=== PATIENT | male | born 1990 | race American Indian/Alaskan Native ===

== ENCOUNTER 2017-06-19 11:09 | Emergency (ER) | payer BC ==
[2017-06-19 11:54] VITALS: BP 108/67
--- NOTE | 2017-06-19 12:48 | Emergency Department Report ---
Vomiting/Diarrhea - HPI Chief Complaint: Nausea/Vomiting/Diarrhea Stated Complaint: VOMITING Duration: 2 Days Nausea/Vomiting Severity: Mild Diarrhea Severity: None Symptoms: Yes Able to Tolerate Fluids, No Watery Diarrhea, No Bloody diarrhea, No Fever, No Recent Unusual Foods, No Recent Untreated Water, No Recent use of Antibiotics, No Family w/ Similar Symptoms, No Contacts w/ Similar Symptoms, No Rash, No Hematuria, No Recent URI Symptoms Other History: 26-year-old male past medical history none presents with complaint of 2 days of intermittent nausea vomiting and diarrhea which occurred more than 48 hours ago. Patient states he may have eaten undercooked food and states he may have experienced food poisoning. Patient has no clinical symptoms at this time. States his last episode of watery diarrhea was yesterday. Patient states his nausea has subsided. Denies fevers or chills. Denies dysuria. Denies abdominal or chest pain. Denies any recent antibiotic use or recent travel. Awake alert and oriented 3 and ambulatory. Denies any testicular pain or swelling. ED Review of Systems ROS: Stated complaint: VOMITING Other details as noted in HPI Constitutional: denies: chills, fever Eyes: denies: eye pain, eye discharge, vision change ENT: denies: ear pain, throat pain Respiratory: denies: cough, shortness of breath, wheezing Cardiovascular: denies: chest pain, palpitations Endocrine: no symptoms reported Gastrointestinal: nausea, vomiting. denies: abdominal pain, diarrhea Genitourinary: denies: urgency, dysuria Musculoskeletal: denies: back pain, joint swelling, arthralgia Skin: denies: rash, lesions Neurological: denies: headache, weakness, paresthesias Psychiatric: denies: anxiety, depression Hematological/Lymphatic: denies: easy bleeding, easy bruising ED Past Medical Hx - Past Medical History Previous Medical History?: No - Surgical History Past Surgical History?: No - Social History Smoking Status: Former Smoker - Medications Home Medications: Home Medications Medication Instructions Recorded Confirmed Last Taken Type Acetaminophen/Codeine [Tylenol #3] 1 tab PO Q4HR PRN #14 tablet 03/19/13 Unknown Rx traMADol [Ultram 50 MG tab] 50 mg PO Q6HR PRN #16 tablet 09/29/13 Unknown Rx Ondansetron [Zofran Odt] 4 mg PO Q6H PRN #10 tab.rapdis 06/19/17 Unknown Rx Vomiting Diarrhea Exam - Exam General: Vital signs noted. No distress. Alert and acting appropriately. HEENT: Yes Moist Mucous Membranes, No Pharyngeal Erythema, No Pharyngeal Exudates, No Rhinorrhea, No Conjuctival Injection, No Frontal Tenderness, No Maxillary Tenderness Neck: No Adenopathy, No Rigidity Lungs: Yes Clear Lung Sounds, Yes Good Air Exchange, No Wheezes, No Stridor, No Cough, No Nasal Flaring, No Retractions, No Use of Accessory Muscles Heart exam: Regular: Yes, Murmur: No, Tachycardia: No Abdomen: Tenderness: No (abdomen soft nontender nondistended on 4 quadrants on exam. Negative tenderness at McBurney's point negative iliopsoas negative Rovsing sign no peritoneal signs or guarding on clinical exam bowel sounds positive all 4 quadrants.), Peritoneal Signs: No, Distention: No, Hyperactive Bowel sounds: No Skin exam: Rash: No, Edema: No, Normal turgor: Yes Neurologic: Alert and oriented, no deficits. Musculoskeletal: Unremarkable. ED Course Vital Signs 06/19/17 11:49 Temperature 98.5 F Pulse Rate 72 Respiratory 16 Rate Blood Pressure 108/67 O2 Sat by Pulse 95 Oximetry ED Medical Decision Making - Medical Decision Making A/P: Gastroenteritis 1-clinical symptoms have completely resolved as per patient. Patient has no current nausea has not vomited since yesterday is tolerating by mouth fluid and food without difficulty and states the diarrhea has subsided. 2-Zofran when necessary, Pepcid when necessary, Pepto-Bismol when necessary 3-follow up with primary care 4- I advised patient that if he cannot tolerate fluid or food by mouth he experiences fevers or chills and persistent nausea and vomiting to return to the ED for reevaluation. Patient has no clinical signs concerning for appendicitis on clinical exam or history at this time. Critical care attestation.: If time is entered above; I have spent that time in minutes in the direct care of this critically ill patient, excluding procedure time. ED Disposition Clinical Impression: Gastroenteritis Nausea & vomiting Qualifiers: Vomiting type: unspecified Vomiting Intractability: non-intractable Qualified Code(s): R11.2 - Nausea with vomiting, unspecified Disposition: DC-01 TO HOME OR SELFCARE Is pt being admited?: No Does the pt Need Aspirin: No Condition: Stable Instructions: Gastroenteritis (ED), Food Poisoning (ED) Prescriptions: Ondansetron [Zofran Odt] 4 mg PO Q6H PRN #10 tab.rapdis PRN Reason: Nausea Referrals: NAKUL ORTIZ MD [Primary Care Provider] - 3-5 Days Forms: Work/School Release Form(ED) Time of Disposition: 12:47
== END 2017-06-19 13:18 | disposition home or self-care (01) ==
LOC: ED 11:09
DX: K52.9 Noninfective gastroenteritis and colitis, unspecified (principal)
CPT/HCPCS: 99282

== ENCOUNTER 2017-07-28 13:31 | Emergency (ER) | payer BC ==
[2017-07-28 13:36] VITALS: BP 126/78
[2017-07-28 14:30] LABS: Bilirubin,Urine NEG (Negative); Blood,Urine NEG (Negative); Color,Urine Yellow (Yellow); Mucus,Urine FEW /HPF; Nitrite,Urine NEG (Negative); Protein,Urine <15 mg/dL mg/dL (Negative); WBC,Urine < 1.0 /HPF (0.0-6.0)
--- NOTE | 2017-07-28 15:44 | Emergency Department Report ---
ED General Adult HPI - General Chief complaint: Urogenital-Male Stated complaint: STD CHECK Time Seen by Provider: 07/28/17 15:33 Source: patient, RN notes reviewed Mode of arrival: Ambulatory Limitations: No Limitations - History of Present Illness Initial comments: This is a 27-year-old male who is previously unknown to this provider who has no chronic medical conditions. The patient presents to the ER requesting an STD check. He has no complaints. He specifically denies headache, neck pain, chest pain, abdominal pain, shortness of breath, urinary symptoms, testicular symptoms, testicular pain, rectal pain, sore throat. Associated Symptoms: denies other symptoms. denies: confusion, chest pain, cough, diaphoresis, fever/chills, headaches, loss of appetite, malaise, nausea/ vomiting, seizure, shortness of breath, syncope, weakness - Related Data Previous Rx's Medication Instructions Recorded Last Taken Type Acetaminophen/Codeine [Tylenol #3] 1 tab PO Q4HR PRN #14 tablet 03/19/13 Unknown Rx traMADol [Ultram 50 MG tab] 50 mg PO Q6HR PRN #16 tablet 09/29/13 Unknown Rx Ondansetron [Zofran Odt] 4 mg PO Q6H PRN #10 tab.rapdis 06/19/17 Unknown Rx Allergies Allergy/AdvReac Type Severity Reaction Status Date / Time No Known Allergies Allergy Verified 07/28/17 13:34 ED Review of Systems ROS: Stated complaint: STD CHECK Other details as noted in HPI ED Past Medical Hx - Past Medical History Previous Medical History?: No - Surgical History Past Surgical History?: No - Social History Smoking Status: Never Smoker Substance Use Type: None - Medications Home Medications: Home Medications Medication Instructions Recorded Confirmed Last Taken Type Acetaminophen/Codeine [Tylenol #3] 1 tab PO Q4HR PRN #14 tablet 03/19/13 Unknown Rx traMADol [Ultram 50 MG tab] 50 mg PO Q6HR PRN #16 tablet 09/29/13 Unknown Rx Ondansetron [Zofran Odt] 4 mg PO Q6H PRN #10 tab.rapdis 06/19/17 Unknown Rx ED Physical Exam - General Limitations: No Limitations General appearance: alert, in no apparent distress - Head Head exam: Present: atraumatic, normocephalic - Eye Eye exam: Present: normal appearance, PERRL, EOMI. Absent: nystagmus - ENT ENT exam: Present: normal exam, normal orophraynx, mucous membranes moist, normal external ear exam - Neck Neck exam: Present: normal inspection, full ROM - Respiratory Respiratory exam: Present: normal lung sounds bilaterally. Absent: respiratory distress, wheezes, rales, rhonchi, stridor, chest wall tenderness, accessory muscle use, decreased breath sounds, prolonged expiratory - Cardiovascular Cardiovascular Exam: Present: regular rate, normal rhythm, normal heart sounds. Absent: bradycardia, tachycardia, irregular rhythm, systolic murmur, diastolic murmur, rubs, gallop - GI/Abdominal GI/Abdominal exam: Present: soft, normal bowel sounds. Absent: distended, tenderness, guarding, rebound, rigid, pulsatile mass - Rectal Rectal exam: Present: deferred - Extremities Exam Extremities exam: Present: normal inspection, full ROM, normal capillary refill. Absent: tenderness, pedal edema, joint swelling, calf tenderness - Back Exam Back exam: Present: normal inspection, full ROM. Absent: tenderness, CVA tenderness (R), paraspinal tenderness, vertebral tenderness - Neurological Exam Neurological exam: Present: alert, oriented X3, CN II-XII intact, normal gait, other (Extraocular movements intact. Tongue midline. No facial droop. Facial sensation intact to light touch in the V1, V2, V3 distribution bilaterally. 5 and 5 strength in 4 extremities.. Sensation is intact to light touch in 4 extremities.). Absent: motor sensory deficit - Psychiatric Psychiatric exam: Present: normal affect, normal mood - Skin Skin exam: Present: warm, dry, intact, normal color. Absent: rash ED Course Vital Signs 07/28/17 13:34 Temperature 97.9 F Pulse Rate 60 Respiratory 18 Rate Blood Pressure 126/78 O2 Sat by Pulse 99 Oximetry ED Medical Decision Making - Lab Data Vital Signs 07/28/17 13:34 Temperature 97.9 F Pulse Rate 60 Respiratory 18 Rate Blood Pressure 126/78 O2 Sat by Pulse 99 Oximetry - Medical Decision Making Differential diagnosis, including but not limited to: STD screening, general medical evaluation Assessment and plan: 27-year-old male with no complaints, no symptoms here for routine STD screening/checkup. Urinalysis unremarkable. Patient is agreeable to a syphilis screen, hepatitis screen, he will follow up with outpatient primary care doctor or the health department for HIV testing. Safe sex practices were reviewed with the patient. Critical care attestation.: If time is entered above; I have spent that time in minutes in the direct care of this critically ill patient, excluding procedure time. ED Disposition Clinical Impression: Screening for STD (sexually transmitted disease) Disposition: TO HOME OR SELFCARE Is pt being admited?: No Does the pt Need Aspirin: No Condition: Stable Additional Instructions: Make certain to wear condom when having sex. Cultures was sent today, and results will be available within the next week. Laboratory studies were sent today to screen for syphilis and hepatitis. Follow-up with the primary care doctor or the health department within the next month for HIV screening. Please return to the ER right away with chest pain, shortness of breath, or or any new complaint which develops in the interim. Otherwise, follow up with a primary care doctor within the next month. Referrals: AB WIGGINS MD [Primary Care Provider] - 3-5 Days RIK CHOWDHURY MD [Staff Physician] - 3-5 Days [facility] [Provider Group] - 3-5 Days [facility] [Outside] - 3-5 Days
[2017-07-28 17:03] LABS: Hepatitis A Antibody IgM Non-Reactive (NonReactive); Hepatitis B Core IgM Non-Reactive (NonReactive); Hepatitis B Surface Antigen Non-Reactive (Negative); Hepatitis C Virus Antibody Non-Reactive (NonReactive)
== END 2017-07-28 16:30 | disposition home or self-care (01) ==
LOC: ED 13:31
DX: Z11.3 Encounter for screening for infections with a predominantly sexual mode of transmission (principal)
CPT/HCPCS: 36415; 80074; 81001; 86592; 99283